=== PATIENT | male | born 1970 | race Caucasian/White ===

== ENCOUNTER 2016-07-11 01:59 | Emergency (ER) | payer MEDICAID ==
[2016-07-11 02:05] VITALS: O2SAT 94
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
[2016-07-11 05:54] VITALS: BP 108/65; PULSE 86; RESP 16; TEMP 97.9
== END 2016-07-11 05:00 | disposition home or self-care (01) ==
PROC: 0HQKXZZ Repair Right Lower Leg Skin, External Approach (ICD-10-PCS; principal; 2016-07-11)
DX: S91.021A Laceration with foreign body, right ankle, initial encounter (principal); J45.909 Unspecified asthma, uncomplicated; I10 Essential (primary) hypertension; F17.200 Nicotine dependence, unspecified, uncomplicated; W45.8XXA Other foreign body or object entering through skin, initial encounter; Y99.8 Other external cause status; Y93.89 Activity, other specified

== ENCOUNTER 2016-07-25 20:49 | Emergency (ER) | payer MEDICAID ==
[2016-07-25 20:53] VITALS: TEMP 98.8; O2SAT 96
--- NOTE | 2016-07-25 21:42 | EDPHY ---
H & P Time Seen by Provider: 07/25/16 20:57 HPI/ROS: Chief complaint. Redness to ankle and left forearm HPI. 45 year old male presents emergency department with redness to right ankle and left forearm. Patient had sutures placed in his right ankle July 11. Laceration was secondary to either fence or go horn. He did not know he needed to have his sutures taken out. He developed left forearm redness in the last several days. Denies fever. ROS Constitutional. no fever/chills, no weakness Eyes. no problems with vision ENT. no sore throat, no nasal drainage Cardiovascular. no chest pain Respiratory. no shortness of breath, no cough Abdominal. no abdominal pain, no nausea/vomiting, no diarrhea . no problems urinating MS. no calf pain/swelling, no neck/back pain, no joint pain Skin. Redness to right ankle and left forearm Lymph. no swollen glands Neuro. no headache, no dizziness, no difficulty walking or with speech Past Medical/Surgical History: Asthma, hypertension Social History: Single, daily smoker, denies alcohol Smoking Status: Current every day smoker Physical Exam: General Appearance: Alert well-developed male mild distress . Vital signs show temp 37.1degrees, heart rate 115, blood pressure 138/93 Eyes: Pupils equal and round no pallor or injection. ENT, Mouth: Mucous membranes are moist. Respiratory: There are no retractions, lungs are clear to auscultation. Cardiovascular: Regular rate and rhythm. Gastrointestinal: Abdomen is soft and nontender, no masses, bowel sounds normal. Neurological: Awake and alert, sensory and motor exams grossly normal. Skin: Erythema to the posterior aspect of the left forearm with the pustule in the middle. Granulation tissue, erythema and swelling to the laceration of the right ankle with sutures deep in the laceration Musculoskeletal: Neck is supple nontender. Extremities symmetrical, full range of motion. Psychiatric: Patient is oriented X 3, there is no agitation. Constitutional: Initial Vital Signs Temperature (C) 37.1 C 07/25/16 20:52 Heart Rate 115 H 07/25/16 20:52 Respiratory Rate 17 07/25/16 20:52 Blood Pressure 138/93 H 07/25/16 20:52 O2 Sat (%) 96 07/25/16 20:52 O2 Delivery Mode Room Air Allergies/Adverse Reactions: No Known Allergies Allergy (Verified 07/25/16 20:52) Home Medications: Medication Instructions Recorded Lisinopril 07/11/16 Vyvanse 07/11/16 Cephalexin [Keflex (*)] 500 mg PO TID #21 cap 07/25/16 Doxycycline Hyclate 100 mg PO BID #14 tab 07/25/16 Medical Decision Making Procedures: Incision and drainage of left forearm. 1% lidocaine with epinephrine is infiltrated in the left forearm. Sterile prep. 11 blade with small amount of purulence. The wound is probed to break up loculations and irrigated with saline. It is dressed with antibiotic ointment and Band-Aid 1% lidocaine with epinephrine into the wound in the right ankle. Copiously irrigated. Sutures are removed. Cephalexin and Bactrim given orally ED Course/Re-evaluation: Patient remained stable. We discussed importance of follow-up and further evaluation in the important it is of being seen in 2 days. We will start the patient on antibiotics tonight. He expresses understanding and agreement Differential Diagnosis: Cellulitis with foreign body in the right ankle wound which ER sutures that were to be removed about 1 week ago. The forearm cellulitis is likely MR SA - Data Points Medications Given: Discontinued Medications Cephalexin HCl (Keflex) 500 mg PO EDNOW ONE PRN Reason: Protocol Stop: 07/25/16 21:44 Last Admin: 07/25/16 21:46 Dose: 500 mg Trimethoprim/Sulfamethoxazole (Bactrim Ds) 1 ea PO EDNOW ONE PRN Reason: Protocol Stop: 07/25/16 21:44 Last Admin: 07/25/16 21:47 Dose: 1 ea Departure - Departure Disposition: Home, Routine, Self-Care Clinical Impression: Cellulitis Qualifiers: Site of cellulitis: extremity Site of cellulitis of extremity: upper extremity Laterality: left Qualified Code(s): L03.114 - Cellulitis of left upper limb Condition: Good Instructions: Cellulitis (ED) Additional Instructions: Cephalexin and Bactrim for infection. Keep left elbow and right ankle clean and dry. Apply antibiotic ointment twice daily and bandage. Return for worsening signs of infection. Recheck on Thursday in the emergency department without fail Referrals: NONE *PRIMARY CARE P,. [Primary Care Provider] - As per Instructions [facility] [Outside] - 2-3 days without fail Prescriptions: Cephalexin [Keflex (*)] 500 mg PO TID #21 cap Doxycycline Hyclate 100 mg PO BID #14 tab
[2016-07-25] MEDS ORDERED: CEPHALEXIN 500 MG CAP PO ONE ×2 (21:43)
[2016-07-25] MEDS ORDERED: SULFAMETHOX/TMP 800/160 MG 1 TAB ONE (21:43)
[2016-07-25] MEDS ORDERED: SULFAMETHOX/TMP 800/160 MG 1 TAB PO ONE (21:43)
[2016-07-25] MEDS ORDERED: HYDROCOD/APAP 5/325 PREPACK#6 BTL TAKEHOME ONE ×2 (23:26→23:30)
[2016-07-25 23:36] VITALS: BP 143/97; PULSE 76; RESP 16
== END 2016-07-25 23:36 | disposition home or self-care (01) ==
PROC: 0J9H0ZZ Drainage of Left Lower Arm Subcutaneous Tissue and Fascia, Open Approach (ICD-10-PCS; principal; 2016-07-25)
DX: L03.114 Cellulitis of left upper limb (principal); J45.909 Unspecified asthma, uncomplicated; I10 Essential (primary) hypertension; F17.200 Nicotine dependence, unspecified, uncomplicated